=== PATIENT | female | born 1990 | race Caucasian/White ===

== ENCOUNTER 2017-09-12 15:05 | Observation (INO) | payer MEDICAID ==
[~2017-09-12] VITALS: Ht 162.6 cm; Wt 77.1 kg
[2017-09-12] MEDS ORDERED: TERBUTALINE SULFATE 1 MG/ML VIAL SUBCUT ONE (16:15)
[2017-09-12] MEDS ORDERED: TERBUTALINE SULFATE 1 MG/ML VIAL ONE (16:37)
== END 2017-09-12 18:31 | disposition home or self-care (01) ==
LOC: SPU 15:05
PROVIDERS: ADMIT Obstetrics & Gynecology; ATTEND Obstetrics & Gynecology
DX: O26.893 Other specified pregnancy related conditions, third trimester (principal); R10.9 Unspecified abdominal pain; Z3A.31 31 weeks gestation of pregnancy
CPT/HCPCS: 59025; 81002; 96372; G0378; J3105

== ENCOUNTER 2017-10-09 17:40 | Observation (INO) | payer MEDICAID ==
[~2017-10-09] VITALS: Ht 162.6 cm; Wt 76.7 kg
[2017-10-09] MEDS ORDERED: TERBUTALINE SULFATE 1 MG/ML VIAL SUBCUT ONE ×2 (19:00→19:47)
[2017-10-09 19:24] LABS: BASOPHILS % (AUTO) 0.1 % (0.0-2.0); EOSINOPHILS # (AUTO) 0.1 K/uL (0.0-0.4); EOSINOPHILS % (AUTO) 0.7 % (0.0-4.0); HEMATOCRIT 26.9 % (36-48); HEMOGLOBIN 8.9 g/dL (12.0-16.0); LYMPHOCYTES # (AUTO) 1.3 K/uL (1.0-5.5); LYMPHOCYTES % (AUTO) 15.5 % (20.5-51.5); MEAN CORPUSCULAR HEMOGLOBIN 24 pg (27-31); MEAN CORPUSCULAR HGB CONC 33 % (32-36); MEAN CORPUSCULAR VOLUME 72 fL (79.0-98.0); MONOCYTES # (AUTO) 0.3 K/uL (0.0-1.0); MONOCYTES % (AUTO) 3.9 % (1.7-9.3); NEUTROPHILS # (AUTO) 6.8 K/uL (1.8-7.7); NEUTROPHILS % (AUTO) 79.8 % (40.0-70.0); PLATELET COUNT (AUTO) 314 K/uL (130-430); RED BLOOD CELL COUNT(AUTO) 3.73 MIL/uL (4.2-6.2); RED CELL DISTRIBUTION WIDTH 13.3 % (9.0-15.0); WHITE BLOOD COUNT (AUTO) 8.5 K/uL (4.8-10.8)
[2017-10-09] MEDS ORDERED: AMPICILLIN SODIUM 2 GM VIAL ONE (19:42)
[2017-10-09] MEDS ORDERED: AMPICILLIN SODIUM 2 GM in NS 100 ML IV SCH (19:50)
[2017-10-09] MEDS ORDERED: LR 1,000 ML IV SCH (20:00)
[2017-10-09] MEDS ORDERED: BETAMET ACET/BETAMET NA PH 30 MG/5 ML VIAL IM ONE (20:00)
[2017-10-09 20:36] LABS: BILIRUBIN,URINE NEGATIVE (NEGATIVE); BLOOD, URINE 3+ (NEGATIVE); CLARITY/URINE HAZY (CLEAR); COLOR,URINE YELLOW (YELLOW); GLUCOSE,URINE NEGATIVE (NEGATIVE); KETONES,URINE NEGATIVE (NEGATIVE); LEUKOCYTE ESTERASE ,URINE 2+ (NEGATIVE); NITRITE, URINE NEGATIVE (NEGATIVE); PH,URINE 6.5 (5.0-8.0); PROTEIN URINE 3+ (NEGATIVE)
[2017-10-09 20:42] LABS: BACTERIA,URINE MODERATE /HPF (None Seen); WBC,URINE >100 /HPF (0-3)
[2017-10-09 20:43] LABS: MUCUS,URINE None Seen /LPF (None Seen)
== END 2017-10-09 21:45 | disposition home or self-care (01) ==
LOC: SPU 17:40
PROVIDERS: ADMIT Specialist; ATTEND Specialist
DX: O62.9 Abnormality of forces of labor, unspecified (principal); Z3A.35 35 weeks gestation of pregnancy
CPT/HCPCS: 36415; 81000; 81002; 85025; 87086; 87186; 96365; 96372; G0378; J0290; J0702; J3105; 59899

== ENCOUNTER 2017-10-10 19:58 | Observation (INO) | payer MEDICAID ==
[~2017-10-10] VITALS: Ht 162.6 cm; Wt 76.7 kg
[2017-10-10] MEDS ORDERED: BETAMET ACET/BETAMET NA PH 30 MG/5 ML VIAL IM SCH (20:30)
[2017-10-10 20:54] VITALS: BP_SYST 100
== END 2017-10-10 21:30 | disposition home or self-care (01) ==
LOC: SPU 19:58
PROVIDERS: ADMIT Specialist; ATTEND Specialist
DX: Z34.93 Encounter for supervision of normal pregnancy, unspecified, third trimester (principal); Z3A.35 35 weeks gestation of pregnancy
CPT/HCPCS: 81002; 96372; G0378; J0702

== ENCOUNTER 2017-10-25 18:00 | Inpatient (IN) | payer BC, MEDICAID ==
[~2017-10-25] VITALS: Ht 162.6 cm; Wt 78.0 kg
[2017-10-25] MEDS ORDERED: LR 1,000 ML IV SCH (18:14)
[2017-10-25] MEDS ORDERED: LR 1,000 ML IV ONE (18:14)
[2017-10-25] MEDS ORDERED: OXYTOCIN/0.9 % SODIUM CHLORIDE 1,000 ML IV SCH (18:14)
[2017-10-25] MEDS ORDERED: AMPICILLIN SODIUM 2 GM in NS 100 ML IV ONE (18:15)
[2017-10-25] MEDS ORDERED: TERBUTALINE SULFATE 1 MG/ML VIAL SUBCUT ONE (18:15)
[2017-10-25 19:07] LABS: BASOPHILS % (AUTO) 0.2 % (0.0-2.0); EOSINOPHILS % (AUTO) 0.4 % (0.0-4.0); HEMATOCRIT 25.8 % (36-48); HEMOGLOBIN 8.5 g/dL (12.0-16.0); LYMPHOCYTES # (AUTO) 1.5 K/uL (1.0-5.5); LYMPHOCYTES % (AUTO) 13.7 % (20.5-51.5); MEAN CORPUSCULAR HEMOGLOBIN 23 pg (27-31); MEAN CORPUSCULAR HGB CONC 33 % (32-36); MEAN CORPUSCULAR VOLUME 70 fL (79.0-98.0); MONOCYTES # (AUTO) 0.4 K/uL (0.0-1.0); MONOCYTES % (AUTO) 3.7 % (1.7-9.3); NEUTROPHILS # (AUTO) 9.3 K/uL (1.8-7.7); PLATELET COUNT (AUTO) 355 K/uL (130-430); RED BLOOD CELL COUNT(AUTO) 3.71 MIL/uL (4.2-6.2); RED CELL DISTRIBUTION WIDTH 13.9 % (9.0-15.0); WHITE BLOOD COUNT (AUTO) 11.2 K/uL (4.8-10.8)
[2017-10-25 20:45] VITALS: BP_SYST 115
[2017-10-25] MEDS ORDERED: fentaNYL CITRATE/PF 100 MCG/2 ML AMP ONE (21:03)
[2017-10-25] MEDS ORDERED: ROPIVACAINE 0.2% 100 ML ONE (21:04)
[2017-10-25] MEDS: AMPICILLIN SODIUM 1 GM in NS 50 ML IV SCH (23:16)
[2017-10-26] MEDS ORDERED: OXYTOCIN 30 UNIT in LR 1,000 ML IV SCH (02:15)
[2017-10-26] MEDS: AMPICILLIN SODIUM 1 GM in NS 50 ML IV SCH ×2 (03:06→06:53)
[2017-10-26] MEDS ORDERED: ROPIVACAINE 0.2% 100 ML ONE (04:15)
[2017-10-26] MEDS ORDERED: OXYTOCIN/0.9 % SODIUM CHLORIDE 1,000 ML IV SCH (10:35)
[2017-10-26] MEDS ORDERED: OXYTOCIN/0.9 % SODIUM CHLORIDE 1,000 ML IV ONE (10:35)
[2017-10-26] MEDS ORDERED: DERMOPLAST SPRAY TP PRN (10:45)
[2017-10-26] MEDS ORDERED: HYDROCORTISONE 0.5%, 28.35 GM TOPICAL CREAM TP PRN (10:45)
[2017-10-26] MEDS ORDERED: SENNOSIDES/DOCUSATE SODIUM 1 TAB TABLET(SENOKOT-S) PO PRN (10:45)
[2017-10-26] MEDS ORDERED: DOCUSATE SODIUM 100 MG CAPSULE PO PRN (10:45)
[2017-10-26] MEDS ORDERED: DIPH-TET-PERTUS Vaccine 0.5 ML VIAL (ADACEL) I.M. PRN (10:45)
[2017-10-26] MEDS ORDERED: WITCH HAZEL LEAF 1 MED.PAD MED.PAD TP PRN (10:45)
[2017-10-26] MEDS ORDERED: ANUSOL 1 EA SUPP.RECT (PREPARATION H) RC PRN (10:45)
[2017-10-26] MEDS ORDERED: METHYLERGONOVINE MALEATE 0.2 MG TABLET PO PRN (10:45)
[2017-10-26] MEDS ORDERED: MEASLES,MUMPS&RUBELLA VACC/PF 12500 UNIT/0.5 ML VIAL SUBQ PRN (10:45)
[2017-10-26] MEDS ORDERED: LANOLIN 7 GM OINT. TP PRN (10:45)
[2017-10-26] MEDS ORDERED: IBUPROFEN 600 MG TABLET PO SCH (12:00)
[2017-10-26] MEDS ORDERED: TEMAZEPAM 15 MG CAPSULE PO PRN (21:00)
[2017-10-27 07:11] LABS: HEMATOCRIT 24.5 % (36-48); HEMOGLOBIN 7.7 g/dL (12.0-16.0)
[2017-10-27] MEDS ORDERED: DOCU-144 PO (10:48)
[2017-10-27] MEDS ORDERED: IBUP-1969 PO (10:48)
[2017-10-27] MEDS ORDERED: FERR140T PO (10:48)
== END 2017-10-27 12:29 | disposition home or self-care (01) | DRG 775 ==
LOC: SPU 18:00
PROVIDERS: ADMIT Specialist; ATTEND Specialist
PROC: 10E0XZZ Delivery of Products of Conception, External Approach (ICD-10-PCS; principal; 2017-10-26)
PROC: 3E0R3BZ Introduction of Anesthetic Agent into Spinal Canal, Percutaneous Approach (ICD-10-PCS; 2017-10-26)
PROC: 00HU33Z Insertion of Infusion Device into Spinal Canal, Percutaneous Approach (ICD-10-PCS; 2017-10-26)
DX: O69.81X0 Labor and delivery complicated by cord around neck, without compression, not applicable or unspecified (principal); Z37.0 Single live birth; Z3A.37 37 weeks gestation of pregnancy
CPT/HCPCS: 36415; 85018-TC; 85025; 86592; 86886; 86900; 86901; J0290; J2590; J2795; J3010; J7120

== ENCOUNTER 2018-08-11 19:04 | Emergency (ER) | payer BC, MEDICAID ==
[~2018-08-11] VITALS: Ht 162.6 cm; Wt 68.0 kg
[~2018-08-11 19:04] MED LIST: DOCU-144 PO; FERR140T2 PO; IBUP-1969 PO
[2018-08-11 19:21] VITALS: BP_SYST 111
--- NOTE | 2018-08-11 19:31 | NUR ---
Patient to ER bed 08 for evaluation. Side rails up. Report given to Frantz CMGRATH.
--- NOTE | 2018-08-11 19:40 | NUR ---
Pt AAOx4 ambulated into ED c/o bilateral ear pain and fever beginning today. Pt denies n/v/d/cough/sob. No other injuries/complaints per pt/noted. Will continue to monitor.
--- NOTE | 2018-08-11 19:47 | NUR ---
ER Dr. Weldon at bedside examining patient.
[2018-08-11 20:08] LABS: BILIRUBIN,URINE NEGATIVE (NEGATIVE); BLOOD, URINE NEGATIVE (NEGATIVE); CLARITY/URINE CLEAR (CLEAR); COLOR,URINE YELLOW (YELLOW); GLUCOSE,URINE NEGATIVE (NEGATIVE); KETONES,URINE NEGATIVE (NEGATIVE); LEUKOCYTE ESTERASE ,URINE 1+ (NEGATIVE); NITRITE, URINE NEGATIVE (NEGATIVE); PROTEIN URINE NEGATIVE (NEGATIVE); UROBILINOGEN,URINE 0.2 (0.2-1.0)
--- NOTE | 2018-08-11 20:30 | NUR ---
Patient resting quietly in no acute distress, awaiting results and dispo.
[2018-08-11 20:33] LABS: BACTERIA,URINE FEW /HPF (None Seen); RBC,URINE 0-3 /HPF (0-3)
[2018-08-11 20:34] LABS: YEAST,URINE Rare /HPF (None Seen)
[2018-08-11 20:40] VITALS: BP_SYST 110
--- NOTE | 2018-08-11 20:45 | NUR ---
Patient given written and verbal discharge instructions and verbalizes understanding. ER MD discussed with patient the results and treatment provided. Patient in stable condition. ID arm band removed. Rx of Macrobid given. Patient educated on pain management and to follow up with PMD. Pain Scale 0. Opportunity for questions provided and answered. Medication side effect fact sheet provided. Patient left ER in no acute distress, able to ambulate without difficulty with slow, steady gait with family at her side.
== END 2018-08-11 20:45 | disposition home or self-care (01) ==
LOC: SED 19:04
DX: N39.0 Urinary tract infection, site not specified (principal); R03.0 Elevated blood-pressure reading, without diagnosis of hypertension; Z79.899 Other long term (current) drug therapy
CPT/HCPCS: 81000-TC; 87086; 99283

== ENCOUNTER 2021-01-16 08:45 | Emergency (ER) | payer BC ==
[~2021-01-16] VITALS: Ht 162.6 cm; Wt 68.9 kg
[2021-01-16 08:45] VITALS: BP_SYST 119
[2021-01-16 09:58] LABS: BASOPHILS % (AUTO) 0.7 % (0.0-2.0); EOSINOPHILS # (AUTO) 0.1 K/uL (0.0-0.4); EOSINOPHILS % (AUTO) 1.8 % (0.0-4.0); HEMATOCRIT 40.7 % (36-48); HEMOGLOBIN 13.2 g/dL (12.0-16.0); LYMPHOCYTES # (AUTO) 0.9 K/uL (1.0-5.5); LYMPHOCYTES % (AUTO) 17.1 % (20.5-51.5); MEAN CORPUSCULAR HEMOGLOBIN 26 pg (27-31); MEAN CORPUSCULAR HGB CONC 32 % (32-36); MEAN CORPUSCULAR VOLUME 80 fL (79.0-98.0); MONOCYTES # (AUTO) 0.3 K/uL (0.0-1.0); MONOCYTES % (AUTO) 4.9 % (1.7-9.3); NEUTROPHILS # (AUTO) 3.9 K/uL (1.8-7.7); NEUTROPHILS % (AUTO) 75.5 % (40.0-70.0); PLATELET COUNT (AUTO) 212 K/uL (130-430); RED CELL DISTRIBUTION WIDTH 15.7 % (9.0-15.0); WHITE BLOOD COUNT (AUTO) 5.2 K/uL (4.8-10.8)
[2021-01-16 10:03] LABS: CHLORIDE 104 mmol/L (98-107); POTASSIUM 3.3 mmol/L (3.5-5.1); SODIUM SERUM 140 mmol/L (136-145)
[2021-01-16 10:04] LABS: ANION GAP 10 (5-15); CALCIUM 8.7 mg/dL (8.4-11.0); CREATININE 0.58 mg/dL (0.55-1.30); GFR AFRICAN AMERICAN 156 mL/min (>90); GLUCOSE 83 mg/dL (70-99); UREA NITROGEN, BLOOD 5 mg/dL (8-21)
[2021-01-16 10:06] LABS: PROTHROMBIN TIME 10.9 SECS (9.5-12.5)
[2021-01-16 10:10] LABS: C-REACTIVE PROTEIN QUANT < 0.2 mg/dL (0-0.5)
[2021-01-16 10:13] LABS: ALANINE AMINOTRANSFERASE 31 U/L (12-78); ALBUMIN 4.1 g/dL (3.4-4.8); ASPARTATE AMINOTRANSFERASE 22 U/L (10-37); TOTAL BILIRUBIN 0.8 mg/dL (0.0-1.0); URIC ACID 3.4 mg/dL (2.4-7.0)
[2021-01-16 10:39] LABS: ERYTHROCYTE SEDIMENTATION RATE 7 MM/HR (0-20)
[2021-01-16] MEDS ORDERED: IBUP-1969 PO (11:11)
[2021-01-16] MEDS ORDERED: HYDR-3917 PO (11:11)
[2021-01-16] MEDS ORDERED: cloNIDine HCL 0.1 MG TABLET PO ONE (11:30)
[2021-01-16 11:38] VITALS: BP_SYST 119
== END 2021-01-16 11:37 | disposition home or self-care (01) ==
LOC: SED 08:45
DX: M25.461 Effusion, right knee (principal); Z79.899 Other long term (current) drug therapy
CPT/HCPCS: 36415; 73560-TC; 80053; 81025; 84550; 84703; 85025; 85610-TC; 85651-TC; 85730-TC; 86140; 99284